=== PATIENT | female | born 1985 | race Caucasian/White ===

== ENCOUNTER 2016-05-13 08:44 | Emergency (ER) | payer BC ==
[2016-05-13 08:58] VITALS: BP 136/70
--- NOTE | 2016-05-13 09:26 | UC ---
Respiratory Complaint HPI - HPI Summary HPI Summary: [address], COUGH, CONGESTION, HOARSENESS, EAR FULLNESS AND WHITLOCK. NO FEVER, N/V/ D. - History of Current Complaint Chief Complaint: UCGeneralIllness Stated Complaint: SORE THROAT COUGH Time Seen by Provider: 05/13/16 09:17 Hx Obtained From: Patient Hx Last Menstrual Period: IUD Onset/Duration: Gradual Onset, Lasting Days, Still Present Timing: Constant Severity Initially: Moderate Severity Currently: Moderate Pain Intensity: 0 Pain Scale Used: 0-10 Numeric Character: Cough: Nonproductive Aggravating Factors: Nothing Alleviating Factors: Nothing Associated Signs And Symptoms: Positive: URI, Nasal Congestion, Hoarseness. Negative: Dyspnea, Fever, Wheezing - Allergies/Home Medications Allergies/Adverse Reactions: Allergies Allergy/AdvReac Type Severity Reaction Status Date / Time No Known Allergies Allergy Verified 05/13/16 08:47 Home Medications: Home Medications [id number] [Vicks Nyquil Cold & Flu 15-6.25-325 mg/15Ml] 30 ml PO PRN 05/13/16 [History] Dextromethorphan-Phenylephrine [Vicks Dayquil Cold & Flu 10-5-325 mg/15Ml] 30 ml PO PRN 05/13/16 [History] Levonorgestrel (IUD) (NF) [Mirena (NF)] 05/13/16 [History] Menthol (Mouth-Throat) [Cough Drops] 1 loretta PO PRN 05/13/16 [History] Multiple Vitamins W/ Minerals [Emergen-C Vitamin C] 05/13/16 [History] PMH/Surg Hx/FS Hx/Imm Hx Previously Healthy: Yes Endocrine History Of: Denies: Diabetes, Hypothyroidism - Surgical History Surgical History: None - Family History Known Family History: Positive: Hypertension - Social History Alcohol Use: Daily Alcohol Amount: 2 glasses of wine Substance Use Type: None Smoking Status (MU): Never Smoked Tobacco - Immunization History Most Recent Influenza Vaccination: 01/2016 Review of Systems Constitutional: Negative ENT: Sore Throat, Ear Ache, Nasal Discharge Respiratory: Cough Cardiovascular: Negative Gastrointestinal: Negative Neurological: Headache All Other Systems Reviewed And Are Negative: Yes Physical Exam Triage Information Reviewed: Yes Appearance: Well-Appearing, No Pain Distress, Well-Nourished Vital Signs: Initial Vital Signs Temp 98.3 F 05/13/16 08:53 Pulse 93 05/13/16 08:53 Resp 18 05/13/16 08:53 BP 136/70 05/13/16 08:53 Pulse Ox 98 05/13/16 08:53 Vital Signs Reviewed: Yes Eyes: Positive: Conjunctiva Clear ENT: Positive: Hearing grossly normal, Pharynx normal, TMs normal - RIGHT, TM dull - LEFT, TM red - LEFT, Muffled/hoarse voice Neck: Positive: Supple, Nontender, No Lymphadenopathy Respiratory Exam: Normal Cardiovascular Exam: Normal Abdomen Description: Positive: Soft Musculoskeletal: Positive: No Edema Neurological: Positive: Alert Psychological: Positive: Age Appropriate Behavior Skin: Negative: rashes UC Diagnostic Evaluation - Laboratory O2 Sat by Pulse Oximetry: 98 Respiratory Course/Dx - Differential Dx/Diagnosis Provider Diagnoses: 1. ACUTE URI. 2. LEFT AOM Discharge - Discharge Plan Condition: Stable Disposition: HOME Prescriptions: Amoxicillin CAP* 1,000 mg PO Q12H #28 cap Patient Education Materials: Otitis Media (ED), Upper Respiratory Infection (ED ) Referrals: Lorena Goldstein MD [Primary Care Provider] - If Needed Additional Instructions: BE AWARE THAT ANTIBIOTICS MAY MAKE YOUR HORMONAL CONTROL LESS EFFECTIVE. BE SURE TO USE BACK UP METHODS OF CONTRACEPTION SUCH CONDOMS
== END 2016-05-13 09:45 | disposition home or self-care (01) ==
LOC: UCEAST 08:44
DX: J06.9 Acute upper respiratory infection, unspecified (principal); H66.92 Otitis media, unspecified, left ear
CPT/HCPCS: 99212; G0463

== ENCOUNTER 2016-11-06 09:59 | Emergency (ER) | payer BC ==
[2016-11-06 10:07] VITALS: BP 153/74
--- NOTE | 2016-11-06 10:21 | UC ---
Respiratory Complaint HPI - HPI Summary HPI Summary: 31 y/o female presents to the urgent care c/o of a persistent dry cough w/ mild sore throat for the past week. Pt reports she recently came from a trip to [facility] and that is where symptoms started. She has been taking Nyquil at night time, but symptoms are not resolving and she is traveling to [place] next week. Pt denies fever, nasal congestion, SOB, chest pain, N/V/D, WHITLOCK, HX of TB , or any mosquito bite while traveling. Pt has not other complains. - History of Current Complaint Chief Complaint: UCRespiratory Stated Complaint: COUGH Time Seen by Provider: 11/06/16 10:08 Hx Obtained From: Patient Hx Last Menstrual Period: IUD ?: No Onset/Duration: Gradual Onset, Lasting Days, Still Present Timing: Intermittent Episodes - dry cough Severity Initially: Mild Severity Currently: Moderate Pain Intensity: 2 - sore throat Pain Scale Used: 0-10 Numeric Character: Cough: Nonproductive Associated Signs And Symptoms: Positive: Dyspnea - mild - Risk Factors Pulmonary Embolism Risk Factors: Negative Cardiac Risk Factors: Negative Pseudomonas Risk Factors: Negative Tuberculosis Risk Factors: Negative - Allergies/Home Medications Allergies/Adverse Reactions: Allergies Allergy/AdvReac Type Severity Reaction Status Date / Time No Known Allergies Allergy Verified 11/06/16 10:05 PMH/Surg Hx/FS Hx/Imm Hx Previously Healthy: Yes - Surgical History Surgical History: None - Family History Known Family History: Positive: Hypertension - Social History Occupation: Employed Full-time Lives: With Family Alcohol Use: Daily Alcohol Amount: 2 glasses of wine Substance Use Type: None Smoking Status (MU): Never Smoked Tobacco - Immunization History Most Recent Influenza Vaccination: 01/2016 Review of Systems Constitutional: Negative Skin: Negative Eyes: Negative ENT: Sore Throat - mild Respiratory: Cough - dry Cardiovascular: Negative Gastrointestinal: Negative Genitourinary: Negative Motor: Negative Neurovascular: Negative Musculoskeletal: Negative Neurological: Negative Psychological: Negative All Other Systems Reviewed And Are Negative: Yes Physical Exam Triage Information Reviewed: Yes Appearance: Well-Appearing, No Pain Distress, Well-Nourished, Obese Vital Signs: Initial Vital Signs Temp 97.0 F 11/06/16 10:01 Pulse 91 11/06/16 10:01 Resp 20 11/06/16 10:01 BP 153/74 11/06/16 10:01 Pulse Ox 98 11/06/16 10:01 Vital Signs Reviewed: Yes Eye Exam: Normal Eyes: Positive: Conjunctiva Clear - PERRLA, EOMI, fundi grossly normal ENT Exam: Normal ENT: Positive: Normal ENT inspection, Pharyngeal erythema - w/ mild exudate in the RT side, TMs normal, Tonsillar swelling, Tonsillar exudate. Negative: Nasal congestion, Nasal drainage Dental Exam: Normal Neck exam: Normal Neck: Positive: Supple, Nontender, Enlarged Nodes @ - RT anterior cervical lymphnode tender to palpation Respiratory Exam: Normal Respiratory: Positive: Chest non-tender, Lungs clear, Normal breath sounds Cardiovascular Exam: Normal Cardiovascular: Positive: RRR, No Murmur, Pulses Normal Abdominal Exam: Normal Abdomen Description: Positive: Nontender, No Organomegaly, Soft. Negative: CVA Tenderness (R), CVA Tenderness (L) Bowel Sounds: Positive: Present Musculoskeletal Exam: Normal Neurological Exam: Normal Psychological Exam: Normal Skin Exam: Normal UC Diagnostic Evaluation - Laboratory O2 Sat by Pulse Oximetry: 98 Respiratory Course/Dx - Course Course Of Treatment: 31 y/o female presents to the urgent care c/o of a persistent dry cough w/ mild sore throat for the past week. Pt reports she recently came from a trip to [facility] and that is where symptoms started. She has been taking Nyquil at night time, but symptoms are not resolving and she is traveling to [place] next week. Pt denies fever, nasal congestion, SOB, chest pain, N/V/D, WHITLOCK, HX of TB , or any mosquito bite while traveling. Hx obtained. PE abnormal findings: ENT: Positive: Normal ENT inspection, Pharyngeal erythema - w/ mild exudate in the RT side, TMs normal, Tonsillar swelling, Tonsillar exudate. Negative: Nasal congestion, Nasal drainage. Rapid strep ordered, result: negative. Viral pharyngitis. Pt Rx Tessalon Tabs PO to alleviate symptoms of dry cough. Pt advised to increase fluid intake, rest. Pt BP elevated today. BP:153/74 w/ FMHX of HTN. Pt advised to decrease salt in her diet and monitor her BP and if it continues to be elevated to f/u with PCP for further evaluation and treatment. Pt understood and agreed. - Differential Dx/Diagnosis Differential Diagnosis/HQI/PQRI: Bronchitis, Laryngitis, Sinusitis, Other - Pharyngitis, tonsilitis. Provider Diagnoses: 1- Viral pharyngitis. 2-Elevated blood pressure w/o HX of HTN. 3-Cough Discharge - Discharge Plan Condition: Stable Disposition: HOME Prescriptions: Benzonatate CAP* [Tessalon 100 MG CAP*] 100 mg PO TID PRN #15 cap PRN Reason: Cough Patient Education Materials: Pharyngitis (ED), Low Sodium Diet (ED) Referrals: Lorena Goldstein MD [Primary Care Provider] - 1 Week Additional Instructions: 1-Please take medication to alleviate your cough, increase fluid intake, eat well and rest. If symptoms do not improve or worsen please return to the urgent care or f/u with your PCP for further evaluation and treatment. 2- Your BP is elevated today, please decrease salt in your diet and monitor BP at home if it continues to be elevated, f/u with your PCP for further evaluation an treatment
== END 2016-11-06 10:44 | disposition home or self-care (01) ==
LOC: UCEAST 09:59
DX: J02.8 Acute pharyngitis due to other specified organisms (principal); R03.0 Elevated blood-pressure reading, without diagnosis of hypertension
CPT/HCPCS: 87651; 99212; G0463